=== PATIENT | male | born 1985 | race Caucasian/White ===

== ENCOUNTER 2020-07-20 09:33 | Emergency (ER) | payer OTHER ==
[~2020-07-20] VITALS: Ht 182.9 cm; Wt 106.6 kg
[~2020-07-20 09:33] MED LIST: NAPROSYN500 MG; NORCO1 TA2 PO; ULTRAM50 MG
[2020-07-20 09:35] VITALS: Ht 182.9 cm; Wt 106.6 kg
[2020-07-20 10:30] LABS: BASOPHIL % 0.5 % (0.2-1.5); PLATELET COUNT 185 x10^3mcL (152-348); RED CELL DISTRIBUTION WIDTH 13.8 % (12.1-16.2)
[2020-07-20 10:59] LABS: CALCIUM 9.3 mg/dL (8.5-10.1); CARBON DIOXIDE 27.2 mmol/L (21-32); CHLORIDE SERUM 103 mmol/L (98-107); GFR1 > 60 mL/min; GLUCOSE SERUM 100 mg/dL (74-106); POTASSIUM SERUM 3.9 mmol/L (3.5-5.1); SODIUM SERUM 140 mmol/L (136-145)
[2020-07-20 11:03] LABS: AMPHETAMINE QUAL UR NONE DETECTED (See below)
[2020-07-20 11:03] LABS: ALKALINE PHOSPHATASE 89 U/L (46-116); ALT/SGPT 59 U/L (16-63); AST/SGOT 26 U/L (15-37); BILIRUBIN TOTAL 0.7 mg/dL (0.20-1.00); TOTAL PROTEIN, SERUM 7.4 g/dL (6.4-8.2)
[2020-07-20 11:13] LABS: T3 TOTAL 1.09 ng/mL
[2020-07-20 11:19] LABS: FREE T4 0.98 ng/dL (0.76-1.46); FREE THYROXINE INDEX 2.7 ug/dL (1.4-4.5)
[2020-07-20 13:06] VITALS: BP 122/76
== END 2020-07-20 13:06 | disposition home or self-care (01) ==
LOC: ED 09:33
PROVIDERS: Emergency Medicine
DX: R07.89 Other chest pain (principal); R00.2 Palpitations; J45.909 Unspecified asthma, uncomplicated; F10.10 Alcohol abuse, uncomplicated; R35.0 Frequency of micturition; Z90.89 Acquired absence of other organs
CPT/HCPCS: 84439